=== PATIENT | female | born 1950 | race Caucasian/White ===

== ENCOUNTER 2021-02-04 16:15 | Day surgery (SDC) | payer MEDICARE, BC ==
[~2021-02-04] VITALS: Ht 160 cm; Wt 77.3 kg
--- NOTE | 2021-02-04 16:10 | NUR ---
1530 Pt rating pain at 5 out of 10. JASON Stovall, called and order placed for Fentanyl IV. 1545 Fentanyl 25 mcg IV given. 1610 Pt rating pain now at 2 out of 10. Pt states she has a low pain tolerance.
[~2021-02-04 16:15] MED LIST: PROTONIX 40MG T40 MG PO; TYLENOL 325MG325 MG PO
[2021-02-04 16:42] VITALS: BP 148/55; PULSE 65; TEMP 97.7
[2021-02-04 18:30] VITALS: BP 144/50; PULSE 63
[2021-02-04 18:45] VITALS: BP 141/52; PULSE 60
[2021-02-04 18:59] VITALS: BP 142/64; PULSE 63; TEMP 98.8
--- NOTE | 2021-02-04 19:32 | NUR ---
Pt arrvied back to floora t 1830 via bed with OR staff, resting quietly, denies needs, brought sandwich box and ice water, denies needs, report given to nightshift nurse who will resume care.
--- NOTE | 2021-02-04 19:56 | NUR ---
DISCHARGE INSTRUCTIONS GIVEN TO PT. NO QUESTIONS. PT HAS EATEN AND VOIDED. PT DENIES PAIN AT THIS TIME. PT UP GETTING DRESSED. CALLED HER DAUGHTER FOR A RIDE HOME.
== END 2021-02-04 20:15 | disposition home or self-care (01) ==
LOC: SDCO 16:15 → SURG 19:17 → SDCO 20:15
DX: N20.1 Calculus of ureter (principal); Z79.899 Other long term (current) drug therapy
CPT/HCPCS: OP; C1769; C2617; J0690; J1100; J2405; J2704; Q9967